=== PATIENT | male | born 1980 | race African-American/Black ===

== ENCOUNTER 2021-04-01 19:37 | Emergency (ER) | payer MEDICAID, OTHER ==
[~2021-04-01] VITALS: Ht 188 cm; Wt 81.8 kg
[~2021-04-01 19:37] MED LIST: OLAN10TA74 PO
[2021-04-01] MEDS ORDERED: OLANZapine 5 MG TABLET PO ONE (20:45)
[2021-04-02 00:57] VITALS: BP 127/86
== END 2021-04-02 02:45 | disposition home or self-care (01) ==
LOC: EMS 19:37
DX: K94.00 Colostomy complication, unspecified (principal); F17.200 Nicotine dependence, unspecified, uncomplicated
CPT/HCPCS: 99283